=== PATIENT | female | born 1985 | race African-American/Black ===

== ENCOUNTER 2024-11-04 13:22 | Observation (INO) | payer OTHER ==
[2024-11-04 15:08] LABS: ABSOLUTE IMMATURE GRANULOCYTES 0.07 x10^3/uL (0.0-0.031); BASOPHILS # 0.07 x10^3/uL (0.01-0.08); EOSINOPHIL % 2.9 % (0.7-5.8); HEMATOCRIT 24.8 % (34.1-44.9); HEMOGLOBIN 6.4 g/dL (11.2-15.7); MCHC 25.8 g/dl (32.2-35.5); MEAN CELL VOLUME 67.9 fl (79.4-94.8); MEAN PLT VOLUME 9.5 fl (9.4-12.3); MONOCYTE # 0.99 x10^3/uL (0.24-0.86); MONOCYTE % 9.5 % (4.7-12.5); PLATELET COUNT 560 x10^3/uL (182-369); RDW 19.9 % (12.1-16.8)
[2024-11-04 15:15] LABS: INR 0.99 (0.83-1.09); PROTHROMBIN TIME (PATIENT) 10.8 SEC (9.7-13.0)
[2024-11-04 15:18] LABS: ACTIVATED PTT 24.9 SECONDS (25.2-36.5)
[2024-11-04 15:33] LABS: CHLORIDE 100 mmol/L (98-107); POTASSIUM 4.7 mmol/L (3.5-5.1); SODIUM 135 mmol/L (136-145)
[2024-11-04 15:35] LABS: CALCIUM 9.4 mg/dL (8.5-10.1)
[2024-11-04 15:36] LABS: ALBUMIN 3.5 g/dl (3.4-5.0); ANION GAP 6 mmol/L (4-13); BLOOD UREA NITROGEN 10.7 mg/dL (7-18); CO2 29 mmol/L (21-32); GLUCOSE,RANDOM 83 mg/dL (74-106); MAGNESIUM 1.9 mg/dL (1.8-2.4)
[2024-11-04 15:39] LABS: CREATININE 0.6 mg/dL (0.55-1.3); SGOT/AST 48 U/L (15-37); SGPT/ALT 27 U/L (13-61)
[2024-11-04 15:40] LABS: BILIRUBIN,TOTAL 0.6 mg/dL (0.2-1)
[2024-11-04 15:41] LABS: TOT PROT 7.8 g/dl (6.4-8.2)
[2024-11-04 15:42] LABS: ALK PHOS 75 U/L (45-117)
[2024-11-04 15:45] LABS: N-TERMINAL BNP 53.8 pg/ml (5-125)
[2024-11-04] MEDS ORDERED: IRON SUCROSE INJECTION 200 MG in SODIUM CHLORIDE 100 ML IVPB ONE (17:34)
[2024-11-04] MEDS ORDERED: hydrOXYzine PAMOATE 25 MG CAPSULE (FP) PO PRN (17:52)
[2024-11-04 19:21] LABS: IRON SERUM 23 ug/dL (50-175); TOTAL IRON BINDING CAPACITY 553 ug/dL (250-450)
[2024-11-04 19:59] VITALS: BMI 44.6
[2024-11-04] MEDS ORDERED: ALBUTEROL SO4 HFA INHALER IH PRN (20:05)
[2024-11-04] MEDS: ALBUTEROL SO4 2.5/IPRATROPIUM 0.5 INH SOL 3 ML VIAL.NEB. NEB PRN (20:26)
[2024-11-04] MEDS: FERROUS SO4 325 MG TABLET (FP) PO SCH (21:09)
[2024-11-04] MEDS: hydrALAZINE HCL 20 MG/ML VIAL IVPUSH ONE (21:31)
[2024-11-04 22:18] LABS: HEMATOCRIT 26.3 % (34.1-44.9); HEMOGLOBIN 7.2 g/dL (11.2-15.7); MCHC 27.4 g/dl (32.2-35.5); MEAN CELL VOLUME 70.1 fl (79.4-94.8); MEAN PLT VOLUME 9.4 fl (9.4-12.3); PLATELET COUNT 456 x10^3/uL (182-369); RDW 22.4 % (12.1-16.8)
[2024-11-04] MEDS: traZODone HCL 50 MG TABLET (FP) PO SCH (22:55)
[2024-11-04 23:55] VITALS: RESP 18
[2024-11-05 08:05] LABS: ABSOLUTE IMMATURE GRANULOCYTES 0.16 x10^3/uL (0.0-0.031); BASOPHILS # 0.05 x10^3/uL (0.01-0.08); EOSINOPHIL % 2.5 % (0.7-5.8); EOSINOPHILS # 0.24 x10^3/uL (0.04-0.36); HEMATOCRIT 27.9 % (34.1-44.9); HEMOGLOBIN 7.4 g/dL (11.2-15.7); MCHC 26.5 g/dl (32.2-35.5); MEAN CELL VOLUME 69.6 fl (79.4-94.8); MEAN PLT VOLUME 9.4 fl (9.4-12.3); MONOCYTE # 0.71 x10^3/uL (0.24-0.86); MONOCYTE % 7.4 % (4.7-12.5); PLATELET COUNT 475 x10^3/uL (182-369); RDW 21.5 % (12.1-16.8)
[2024-11-05 08:18] LABS: POTASSIUM 4.1 mmol/L (3.5-5.1)
[2024-11-05 08:20] LABS: CALCIUM 9.2 mg/dL (8.5-10.1)
[2024-11-05 08:21] LABS: BLOOD UREA NITROGEN 9.4 mg/dL (7-18)
[2024-11-05 08:24] LABS: CREATININE 0.6 mg/dL (0.55-1.3)
[2024-11-05] MEDS ORDERED: ESCITALOPRAM OXALATE 10 MG TABLET ONE (09:05)
[2024-11-05] MEDS: amLODIPine BESYLATE 10 MG TABLET (FP) PO SCH (09:06)
[2024-11-05] MEDS: ESCITALOPRAM OXALATE 20 MG TABLET PO SCH (09:06)
[2024-11-05] MEDS ORDERED: ACETAMINOPHEN 325 MG TABLET (FP) PO PRN (09:40)
[2024-11-05 14:52] VITALS: BP 141/77; PULSE 90; TEMP 98.1
[2024-11-05] MEDS: IRON SUCROSE INJECTION 200 MG in SODIUM CHLORIDE 100 ML IVPB ONE (15:01)
[2024-11-05 15:10] LABS: HEMATOCRIT 31.5 % (34.1-44.9); HEMOGLOBIN 8.6 g/dL (11.2-15.7); MCHC 27.3 g/dl (32.2-35.5); MEAN CELL VOLUME 71.6 fl (79.4-94.8); MEAN PLT VOLUME 9.3 fl (9.4-12.3); PLATELET COUNT 486 x10^3/uL (182-369)
== END 2024-11-05 17:50 | disposition home or self-care (01) ==
LOC: JER 13:22 → JERBED 17:30 → J6S 19:39
PROVIDERS: ADMIT Internal Medicine; ATTEND Internal Medicine
PROC: 3E0F7GC Introduction of Other Therapeutic Substance into Respiratory Tract, Via Natural or Artificial Opening (ICD-10-PCS; principal; 2024-11-04)
PROC: 3E033GC Introduction of Other Therapeutic Substance into Peripheral Vein, Percutaneous Approach (ICD-10-PCS; 2024-11-04)
PROC: 30233N1 Transfusion of Nonautologous Red Blood Cells into Peripheral Vein, Percutaneous Approach (ICD-10-PCS; 2024-11-04)
DX: D50.9 Iron deficiency anemia, unspecified (principal); N92.1 Excessive and frequent menstruation with irregular cycle; F41.9 Anxiety disorder, unspecified; H43.399 Other vitreous opacities, unspecified eye; R73.03 Prediabetes; D21.9 Benign neoplasm of connective and other soft tissue, unspecified; I10 Essential (primary) hypertension; Z72.0 Tobacco use
CPT/HCPCS: 36415; 36430; 71045-TC-FY; 76512; 76830-TC; 80048; 80053; 80061; 82728; 83036; 83540; 83550; 83735; 83880; 84484; 84702; 85025; 85027; 85610; 85730; 86850; 86900; 86901; 86922; 93005; 93010; 94640; 96365; 96375; 99285-25; G0378; J1756; P9058